=== PATIENT | male | born 1960 | race Caucasian/White ===

== ENCOUNTER → 2017-04-14 | Outpatient (CLI) | payer OTHER | LOC: FIMAGING 10:13 | PROVIDERS: ATTEND Internal Medicine | DX: R19.07 Generalized intra-abdominal and pelvic swelling, mass and lump (principal); N28.1 Cyst of kidney, acquired ==

== ENCOUNTER → 2017-08-15 | Outpatient (CLI) | payer OTHER | LOC: FIMAGING 10:42 | PROVIDERS: ATTEND Internal Medicine | DX: Z13.820 Encounter for screening for osteoporosis (principal); B20 Human immunodeficiency virus [HIV] disease; M85.89 Other specified disorders of bone density and structure, multiple sites ==

== ENCOUNTER → 2017-08-18 | Outpatient (CLI) | payer OTHER | LOC: FIMAGING 14:15 | PROVIDERS: ATTEND Internal Medicine | DX: N50.3 Cyst of epididymis (principal); I86.1 Scrotal varices; Z79.899 Other long term (current) drug therapy ==

== ENCOUNTER → 2018-06-08 | Outpatient (CLI) | payer BC, OTHER | PROVIDERS: ATTEND Otolaryngology | DX: R10.13 Epigastric pain (principal) | CPT/HCPCS: 92611-GN ==

== ENCOUNTER → 2018-09-20 | Outpatient (CLI) | payer OTHER | LOC: FIMAGING 15:28 | PROVIDERS: ATTEND Urology | DX: N50.3 Cyst of epididymis (principal) ==